=== PATIENT | male | born 1990 | race African-American/Black ===

== ENCOUNTER 2019-11-04 12:12 | Emergency (ER) | payer OTHER ==
--- NOTE | 2019-11-04 12:54 | ER ---
Nurse's Notes [facility] Name: Madi Khan Age: 29 yrs Sex: Male : 1990 Arrival Date: 11/04/2019 Time: 12:15 Bed 8 Private MD: Diagnosis: Essential (primary) hypertension;Patient's unintentional underdosing of medication regimen Presentation: 11/03 12:19 Chief complaint: Patient states: I can't get in to see my doctor and I have been ca1 without my BP medication for 3 weeks now and my BP last night was 145/105. Denies headache, dizziness. Coronavirus screen: Proceed with normal triage. Patient denies a cough. Patient denies shortness of breath or difficulty breathing. Patient denies measured and/or subjective temperature greater than 100.4F prior to today's visit. Patient denies travel on a cruise ship or to a country the [facility] currently lists as an affected area. Patient denies contact with known and/or suspected case of COVID-19. Ebola Screen: Patient negative for fever greater than or equal to 101.5 degrees Fahrenheit, and additional compatible Ebola Virus Disease symptoms Patient denies exposure to infectious person. Patient denies travel to an Ebola-affected area in the 21 days before illness onset. No symptoms or risks identified at this time. Initial Sepsis Screen: Does the patient meet any 2 criteria? No. Patient's initial sepsis screen is negative. Does the patient have a suspected source of infection? No. Patient's initial sepsis screen is negative. Risk Assessment: Do you want to hurt yourself or someone else? Patient reports no desire to harm self or others. Onset of symptoms was November 04, 2019. 12:19 Method Of Arrival: Ambulatory ca1 12:19 Acuity: BERNICE 4 ca1 Triage Assessment: 12:30 General: Appears in no apparent distress. comfortable, Behavior is calm, cooperative, bp appropriate for age. Pain: Denies pain. EENT: No deficits noted. Neuro: No deficits noted. Cardiovascular: No deficits noted. Respiratory: No deficits noted. GI: No signs and/or symptoms were reported involving the gastrointestinal system. : No signs and/or symptoms were reported regarding the genitourinary system. Derm: No deficits noted. Musculoskeletal: No deficits noted. Historical: - Allergies: 12:22 No Known Allergies; ca1 - Home Meds: 12:22 lisinopril 20 mg Oral tab 1 tab once daily [Active]; ca1 - PMHx: 12:22 Hypertension; ca1 - PSHx: 12:22 None; ca1 - Immunization history:: Adult Immunizations up to date. - Social history:: Smoking status: Patient denies any tobacco usage or history of. Screenin:30 Abuse screen: Denies threats or abuse. Denies injuries from another. Nutritional bp screening: No deficits noted. Tuberculosis screening: No symptoms or risk factors identified. Fall Risk None identified. Assessment: 12:30 General: SEE TRIAGE NOTE. bp 13:05 Reassessment: PT D/C HOME AMBULATORY, DX WITH HYPERTENSION. bp Vital Signs: 12:19 BP 157 / 104; Pulse 75; Resp 16 S; Temp 98.1(TE); Pulse Ox 100% on R/A; Weight 129.27 ca1 kg (R); Height 5 ft. 11 in. (180.34 cm) (R); 12:22 BP 153 / 98; ca1 13:04 BP 161 / 95; Pulse 69; Resp 17; Temp 98.1; Pulse Ox 100% ; bp 12:19 Body Mass Index 39.75 (129.27 kg, 180.34 cm) ca1 ED Course: 12:15 Patient arrived in ED. ag5 12:21 Triage completed. ca1 12:22 Arm band placed on right wrist. ca1 12:24 Wu Cha, KENYETTA is Primary Nurse. bp 12:24 Chidi Richmond MD is Attending Physician. madie 12:28 Olive Balderas FNP-C [facility]. snw 12:30 Patient has correct armband on for positive identification. Bed in low position. Call bp light in reach. Side rails up X2. 13:00 No provider procedures requiring assistance completed. Patient did not have IV access bp during this emergency room visit. Administered Medications: 13:00 Drug: Lisinopril 10 mg Route: PO; bp 13:04 Follow up: Response: No adverse reaction bp Outcome: 12:54 Discharge ordered by . snw 13:00 Discharged to home ambulatory. bp 13:00 Condition: stable 13:00 Discharge instructions given to patient, Instructed on discharge instructions, follow up and referral plans. medication usage, Demonstrated understanding of instructions, follow-up care, medications, Prescriptions given X 1. 13:06 Patient left the ED. bp Signatures: Chidi Richmond MD MD cha Therrien, Shelly, SUPERVISOR [employer]OR[employer]-C SUPERVISOR TANK STORAGE-Csnw Wu Cha, RN RN bp Ramona Echeverria RN RN ca1 Stef Gagnon ag5
--- NOTE | 2019-11-04 12:55 | EDPHYS ---
Physician Documentation [facility] Name: Madi Khan Age: 29 yrs Sex: Male : 1990 Arrival Date: 11/04/2019 Time: 12:15 Bed 8 Private MD: ED Physician Chidi Richmond HPI: 11/03 13:06 This 29 yrs old Male presents to ER via Ambulatory with complaints of Medication Refill.snw 13:06 The patient presents to the emergency department requesting refill(s) for: Lisinopril snw 20mg . The patient chronically suffers from hypertension. The patient has not experienced similar symptoms in the past. pt unable to get in 2nd to [facility], MD office would not call out until seen. Historical: - Allergies: 12:22 No Known Allergies; ca1 - Home Meds: 12:22 lisinopril 20 mg Oral tab 1 tab once daily [Active]; ca1 - PMHx: 12:22 Hypertension; ca1 - PSHx: 12:22 None; ca1 - Immunization history:: Adult Immunizations up to date. - Social history:: Smoking status: Patient denies any tobacco usage or history of. ROS: 13:06 Constitutional: Negative for fever, chills, and weight loss, Eyes: Negative for injury, snw pain, redness, and discharge, ENT: Negative for injury, pain, and discharge, Neck: Negative for injury, pain, and swelling, Cardiovascular: Negative for chest pain, palpitations, and edema, Respiratory: Negative for shortness of breath, cough, wheezing, and pleuritic chest pain, Abdomen/GI: Negative for abdominal pain, nausea, vomiting, diarrhea, and constipation, Back: Negative for injury and pain, : Negative for injury, bleeding, discharge, and swelling, MS/Extremity: Negative for injury and deformity, Skin: Negative for injury, rash, and discoloration, Neuro: Negative for headache, weakness, numbness, tingling, and seizure, Psych: Negative for depression, anxiety, suicide ideation, homicidal ideation, and hallucinations. Exam: 13:06 Constitutional: This is a well developed, well nourished patient who is awake, alert, snw and in no acute distress. Head/Face: Normocephalic, atraumatic. Eyes: Pupils equal round and reactive to light, extra-ocular motions intact. Lids and lashes normal. Conjunctiva and sclera are non-icteric and not injected. Cornea within normal limits. Periorbital areas with no swelling, redness, or edema. ENT: Nares patent. No nasal discharge, no septal abnormalities noted. Tympanic membranes are normal and external auditory canals are clear. Oropharynx with no redness, swelling, or masses, exudates, or evidence of obstruction, uvula midline. Mucous membranes moist. Neck: Trachea midline, no thyromegaly or masses palpated, and no cervical lymphadenopathy. Supple, full range of motion without nuchal rigidity, or vertebral point tenderness. No Meningismus. Chest/axilla: Normal chest wall appearance and motion. Nontender with no deformity. No lesions are appreciated. Cardiovascular: Regular rate and rhythm with a normal S1 and S2. No gallops, murmurs, or rubs. Normal PMI, no JVD. No pulse deficits. Respiratory: Lungs have equal breath sounds bilaterally, clear to auscultation and percussion. No rales, rhonchi or wheezes noted. No increased work of breathing, no retractions or nasal flaring. Abdomen/GI: Soft, non-tender, with normal bowel sounds. No distension or tympany. No guarding or rebound. No evidence of tenderness throughout. Back: No spinal tenderness. No costovertebral tenderness. Full range of motion. Skin: Warm, dry with normal turgor. Normal color with no rashes, no lesions, and no evidence of cellulitis. MS/ Extremity: Pulses equal, no cyanosis. Neurovascular intact. Full, normal range of motion. Neuro: Awake and alert, GCS 15, oriented to person, place, time, and situation. Cranial nerves II-XII grossly intact. Motor strength 5/5 in all extremities. Sensory grossly intact. Cerebellar exam normal. Normal gait. Psych: Awake, alert, with orientation to person, place and time. Behavior, mood, and affect are within normal limits. Vital Signs: 12:19 BP 157 / 104; Pulse 75; Resp 16 S; Temp 98.1(TE); Pulse Ox 100% on R/A; Weight 129.27 ca1 kg (R); Height 5 ft. 11 in. (180.34 cm) (R); 12:22 BP 153 / 98; ca1 13:04 BP 161 / 95; Pulse 69; Resp 17; Temp 98.1; Pulse Ox 100% ; bp 12:19 Body Mass Index 39.75 (129.27 kg, 180.34 cm) ca1 MDM: 12:25 Patient medically screened. [facility] Administered Medications: 13:00 Drug: Lisinopril 10 mg Route: PO; bp 13:04 Follow up: Response: No adverse reaction bp Disposition: 14:24 Co-signature as Attending Physician, Chidi Richmond MD I agree with the assessment and [facility] plan of care. Disposition: 11/04/19 12:54 Discharged to Home. Impression: Essential (primary) hypertension, Patient's unintentional underdosing of medication regimen. - Condition is Stable. - Discharge Instructions: Hypertension, DASH Eating Plan, Managing Your Hypertension, Form - Blood Pressure Record Sheet. - Prescriptions for Lisinopril 10 mg Oral Tablet - take 1 tablet by ORAL route once daily Take one tablet daily for 3-4 days, keep blood pressure log. May increase dose to two tablets daily to attain goal blood pressure.; 40 tablet. - Work release form, Medication Reconciliation Form, Thank You Letter, Antibiotic Education, Prescription Opioid Use form. - Follow up: Emergency Department; When: As needed; Reason: Worsening of condition. Follow up: Private Physician; When: As needed; Reason: Recheck today's complaints, Continuance of care, Re-evaluation by your physician. Signatures: Chidi Richmond MD MD cha Therrien, Shelly, BILLET DRILLER-C BILLET DRILLER-Csnw Wu Cha RN RN bp Ramona Echeverria RN RN ca1 Corrections: (The following items were deleted from the chart) 13:06 12:54 11/04/2019 12:54 Discharged to Home. Impression: Essential (primary) bp hypertension; Patient's unintentional underdosing of medication regimen. Condition is Stable. Discharge Instructions: Hypertension, Form - Blood Pressure Record Sheet. Forms are Medication Reconciliation Form, Thank You Letter, Antibiotic Education, Prescription Opioid Use. Follow up: Emergency Department; When: As needed; Reason: Worsening of condition. Follow up: Private Physician; When: As needed; Reason: Recheck today's complaints, Continuance of care, Re-evaluation by your physician. snw
[2019-11-04] MEDS ORDERED: lisinopriL 10 MG TAB ONE (13:09)
[2019-11-04 13:23] VITALS: BP 161/95; TEMP 98.1; O2SAT 100
--- OUTSIDE RECORDS SUMMARY | 2019-11-04 16:19 | XMS REPORT | Continuity of Care Document ---
:1990 Author Organization [facility] Care Team Providers Name Role Phone [facility] Unavailable Un available Problems Problem Status Onset Classification Date Comments Sourc e Date Reported J20.8 - ACUTE Active 09/23/19 OPI D BRONCHITIS DUE [place] TO OTHER Obesity Active Problem 10/28/2019 Medica l (disorder) Group,[facility] Medications Medication Details Route Status Patient Ordering Order Source Instructions Provider Date lisinopril 20 mg = 1 tab, Active oral tablet PO, Daily, 020 Medical # 30 tab, 0 Group Refill(s), Pharmacy: [id number] Ofloxacin 3 MG/ML 5 drp, Active Otic Solution RIGHT EAR, 019 Medical BID, # 5 Group mL, 0 Refill(s), Pharmacy: [id number] Amoxicillin 875 875 mg = 1 Active MG / Clavulanate tab, PO, 019 Medica l 125 MG Oral BID, X 10 Group Tablet [Augmentin day, # 20 875-mg] tab, 0 Refill(s), Pharmacy: [id number] benzonatate 100 See Active MG Oral Capsule Instruction 019 Medi meng [Anita Echavarria] s, PRN Group cough, 1-2 cap PO TID prn cough or throat pain. do not crush or chew, # 60 cap, 0 Refill(s), Pharmacy: [id number] Depo-Medrol 80 mg, Inactive Route: IM, 019 Medical Drug form: Group SUSP, ONCE, Dosing Weight 131.182, kg, Start date: 09/21/18 16:31:00 CDT, Stop date: 09/21/18 16:31:00 CDT Codeine Phosphate 5 mL, PO, Active MH 2 MG/ML / Q6H, PRN 019 Medical Promethazine for cough, Group Hydrochloride May cause 1.25 MG/ML Oral drowsiness. Solution , X 14 day, # 120 mL, 0 Refill(s) lisinopril 20 mg = 1 tab, Active MH oral tablet PO, Daily, 019 Medical # 90 tab, 1 Group Refill(s), Pharmacy: [facility]/pharmac [facility] #[id number] Codeine Phosphate See Active MH 2 MG/ML / Instruction 019 Medical Guaifenesin 20 s, 10 mL PO Group MG/ML Oral Q 6 hours Solution prn cough, [Cheratussin] may cause drowsiness, # 160 mL, 0 Refill(s) Clarithromycin 500 mg = 1 Active MH 500 MG Oral tab, PO, 019 Medical Tablet [Biaxin] Q12H, X 10 Group day, # 20 tab, 0 Refill(s), Pharmacy: [facility]/pharmac [facility] #[id number] lisinopril 20 mg = 1 tab, No Longer oral tablet PO, Daily, Active 018 Medical # 90 tab, Group Pharmacy: [facility]/pharmac y #[id number] lisinopril 10 mg See No Longer oral tablet Instruction Active 018 Medical s, # 30 Group tab, TAKE 1 TABLET ORALLY ONCE DAILY, Pharmacy: [facility]/pharmac [facility] #[id number] lisinopril 20 mg 20 mg = 1 No Longer oral tablet tab, PO, Active 018 Medical Daily, # 90 Group tab, 0 Refill(s), Pharmacy: [facility]/pharmac [facility] #[id number] {21 See Active (Methylprednisolo Instruction 018 Co dical ne 4 MG Oral s, PO, Take Group Tablet [Medrol]) by mouth as } Pack [Medrol directed on Dosepak] label., # 1 Pack, 0 Refill(s), Pharmacy: [id number] Amoxicillin 875 875 mg = 1 No Longer MG / Clavulanate tab, PO, Active 018 Medica l 125 MG Oral BID, X 10 Group Tablet [Augmentin day, # 20 875-mg] tab, 0 Refill(s), Pharmacy: [id number] lisinopril 10 mg See No Longer oral tablet Instruction Active 018 Medical s, # 30 Group tab, Refill(s) 1, TAKE 1 TABLET ORALLY ONCE DAILY, Pharmacy: [facility]/pharmac [facility] #[id number] lisinopril 10 mg See Active oral tablet Instruction 018 Medical s, # 30 Group tab, Refill(s) 3, TAKE 1 TABLET ORALLY ONCE DAILY, Pharmacy: [facility]/pharmac [facility] #[id number] lisinopril 10 mg See Active oral tablet Instruction 017 Medical s, # 30 Group tab, Refill(s) 1, TAKE 1 TABLET ORALLY ONCE DAILY, Pharmacy: [facility]/pharmac [facility] #[id number] Allergies, Adverse Reactions, Alerts Substance Category Reaction Severity Reaction Status Date Comments S ource type Reported No Known Assertion Drug Medication allergy Medic al Allergies Group Immunizations No Data Provided for This Section Results No Data Provided for This Section Pathology Reports No Data Provided for This Section Diagnostic Reports Report Value Date Source Chest 2 views DX EXAM: Chest radiographs 09/22/2018 [place] HISTORY: Acute bronchitis COMPARISON: None TECHNIQUE: 2 views FINDINGS: Moderate elevation or eventr ation right hemidiaphragm limits evaluation of the right lower lung. Otherwise, no appreciable pneumonia, edema or pleural effusion. Cardiac silhouette within normal limits. IMPRESSION: No acute finding. SL 16 Consultation Notes No Data Provided for This Section Discharge Summaries No Data Provided for This Section History and Physicals No Data Provided for This Section Vital Signs Vital Sign Value Date Comments Source Weight 130.364 12/07/2018 Medical Grou p Height 180.34 cm 12/07/2018 Medical Grou p BMI Calculated 40.08 12/07/2018 Medical Gr oup Respitory Rate 16 12/07/2018 Medical Gr oup Temperature Oral (F) 98.4 F 12/07/2018 Medi meng Group Heart Rate 87 12/07/2018 Medical Grou p Systolic (mm Hg) 127 12/07/2018 Medical Group Diastolic (mm Hg) 84 12/07/2018 Medical Group BMI Calculated 40.34 09/21/2018 Medical Gr oup Weight 131.182 09/21/2018 Medical Grou p Height 180.34 cm 09/21/2018 Medical Grou p Temperature Oral (F) 98.1 F 09/21/2018 Medi meng Group Heart Rate 96 09/21/2018 Medical Grou p Systolic (mm Hg) 130 09/21/2018 Medical Group Diastolic (mm Hg) 86 09/21/2018 Medical Group BMI Calculated 39.3 09/14/2018 Medical Gr oup Height 180.34 cm 09/14/2018 Medical Grou p Weight 127.818 09/14/2018 Medical Grou p Systolic (mm Hg) 123 09/14/2018 Medical Group Diastolic (mm Hg) 90 09/14/2018 Medical Group Temperature Oral (F) 98.4 F 09/14/2018 Medi meng Group Heart Rate 79 09/14/2018 Medical Grou p Height 180.34 cm 01/27/2018 Medical Grou p Heart Rate 69 01/27/2018 Medical Grou p Temperature Oral (F) 97.6 F 01/27/2018 Medi meng Group Weight 125 01/27/2018 Medical Grou p BMI Calculated 38.43 01/27/2018 Medical Gr oup Systolic (mm Hg) 135 01/27/2018 Medical Group Diastolic (mm Hg) 94 01/27/2018 Medical Group Encounters Location Location Encounter Encounter Reason Attending ADM DC Stat us Source Details Type Number For Provider Date Date Visit Outpatient [id number] 10/[address] [facility] [place] Outpatient [id number] NIKOLAI 03/[address] [facility] [place] Outpatient [id number] ANGI 06/[address] [facility] [place] Outpatient [id number] ANGI 06/[address] [facility] [place] Outpatient [id number] NIKOLAI 08/[address] [facility] [place] Outpatient [id number] ANGI 03/[address] [facility] [place] [facility] Phone [id number] 03/23 03/25 Primary Message /2016 [facility] Phone [id number] 05/25 05/27 Primary Message /2017 [facility] Outpatient [id number] NIKOLAI06/[address] [facility] [place] Ambulatory [id number] Nikolai 06/24 06/24 Primary Pre-Reg [place] /2017 [facility] Phone [id number] 12/21 12/23 Primary Message /2017 [facility] Outpatient [id number] ALLAN 01/27 [facility] Out[facility] [id number] Allan 01/27 01/28 MH Primary [place] /2017 [facility] Phone [id number] 03/22 03/24 MH Primary Message /2017 [facility] Phone [id number] 04/26 04/28 MH Primary Message /2017 [facility] Outpatient [id number] Allan 09/14 [facility] [place] Outpatient [id number] Nikolai 09/14 09/15 MH Primary [place] /2018 [facility] Outpatient [id number] Nikolai09/21 [facility] [place] Outpatient [id number] Allan 09/21 [facility] Ambulatory [id number] Nikolai 09/21 09/21 MH Primary Pre-Reg [place] [facility] Outpatient [id number] Allan 09/21 09/22 MH Primary [place] [facility] Outpt Diag [id number] Allan 09/22 09/23 [facility] [place] [facility] Phone [id number] 09/23 09/25 Primary Message [facility] Outpatient [id number] Harini 12/07 Active [facility] [place] [facility] Outpatient [id number] Nikolai 12/07 12/08 Primary [place] /2018 [facility] Phone [id number] 08/23 08/25 Primary Message /2019 [facility] Phone [id number] 10/23 10/25 Primary Message /2019 [facility] Outpatient [id number] Allan 11/07 Active [facility] Procedures No Data Provided for This Section Assessment and Plan No Data Provided for This Section Plan of Care No Data Provided for This Section Social History Social History Date Source Social History TypeResponse 03/31/2016 [facility] Alcohol Past Employment/School Status: Employed. Work/School descripti on: [employer]. Activity level: Heavy physical work. Substance Abuse Use: None. Smoking Status Former smoker; Type: Cigarettes; Concern s about tobacco use in household: No; Exposure to Tobacco Smoke social; Cigarette Smoking Last 365 Days No; Reg Smoking Cessation Counseling No; Started at age: 15.0; Stopped at age: 25; entered on: 12/07/18 Social History TypeResponse 01/18/2015 ANDREW DAVE [place] Substance Abuse Use: None. Employment/School Status: Employed. Work/School descripti on: [employer]. Activity level: Heavy physical work. Alcohol Past Smoking Status Former smoker; Type: Cigarettes; Concern s about tobacco use in household: No; Exposure to Tobacco Smoke social; Cigarette Smoking Last 365 Days No; Reg Smoking Cessation Counseling No; Started at age: 15.0; Stopped at age: 25; entered on: 09/21/18 Family History No Data Provided for This Section Advance Directives No Data Provided for This Section Functional Status No Data Provided for This Section
--- OUTSIDE RECORDS SUMMARY | 2019-11-04 16:19 | XMS REPORT | Summary of Care ---
:1990 Author Organization [facility] Address [address] [place] [address]- Encounter HQ Ana_romy(FIN) [id number] Date(s): 08/24/19 - 08/25/19 [facility] [place] [address] [address]- [phone] Vital Signs No data available for this section Problem List Condition Effective Dates Status Health Status Informant Obesity(Confirmed) Active Allergies, Adverse Reactions, Alerts No Known Allergies Medications lisinopril 20 mg oral tablet = 1 tab, PO, Daily, # 30 tab, 0 Refill(s), Pharmacy: [id number] Start Date: 08/24/19 Status: Ordered Results No data available for this section Immunizations No data available for this section Procedures No data available for this section Social History Social History Type Response Alcohol Past Employment/School Status: Employed. Work/Scho ol description: [employer]. Activity level: Heavy physical work. Substance Abuse Use: None. Smoking Status Former smoker; Type: Cigaret sarah; Concerns about tobacco use in household: No; Exposure to Tobacco Smoke social; Cigarette Smoking Last 365 Days No; Reg Smoking Cessation Counseling No; Started at age: 15.0; Stopped at age: 25; entered on: 12/07/18 Assessment and Plan No data available for this section
--- OUTSIDE RECORDS SUMMARY | 2019-11-04 16:19 | XMS REPORT | Summary of Care ---
:[address] [facility] Address [address] [place] [address]- Care Team Providers Name Role Phone Terry Adarsh Primary Care Physician Encounter HQ Ana_romy(JAQUELINE) [id number] Date(s): 10/24/19 - 10/25/19 [facility] [place] [address] [address] [phone] Vital Signs No data available for this section Problem List Condition Effective Dates Status Health Status Informant Obesity(Confirmed) Active Allergies, Adverse Reactions, Alerts No Known Allergies Medications No data available for this section Results No data available for this section [...]
== END 2019-11-04 13:06 | disposition home or self-care (01) ==
LOC: ER 12:12
DX: I10 Essential (primary) hypertension (principal); Z91.138 Patient's unintentional underdosing of medication regimen for other reason; Z76.0 Encounter for issue of repeat prescription
CPT/HCPCS: 99283